=== PATIENT | female | born 1985 | race Caucasian/White ===

== ENCOUNTER 2021-09-16 20:20 | Emergency (ER) | payer OTHER ==
[2021-09-16 21:32] LABS: HEMOGLOBIN 13.2 gm/dl (12.3-15.3); RED BLOOD COUNT 3.97 M/UL (4.00-5.10)
[2021-09-16 21:58] LABS: BUN/CREATININE RATIO 19 (0-10)
[2021-09-17] MEDS ORDERED: [UNRECOGNIZED DRUG - OTHER] (02:31)
[2021-09-17] MEDS ORDERED: AUGMENTIN XR 11 EACH PO (02:31)
== END 2021-09-17 02:39 | disposition home or self-care (01) ==
LOC: ER1 20:20
PROVIDERS: Emergency Medicine
DX: J32.0 Chronic maxillary sinusitis (principal); R42 Dizziness and giddiness; F17.210 Nicotine dependence, cigarettes, uncomplicated
CPT/HCPCS: 70450; 71045; 80053; 81001; 82550; 82553; 83874; 84484; 84703; 85025; 85379; 93005; 99285